=== PATIENT | male | born 1940 | race African-American/Black ===

== ENCOUNTER 2021-04-07 18:29 | Inpatient (IN) | payer MEDICARE, OTHER ==
[~2021-04-07] VITALS: Ht 180.3 cm; Wt 101.6 kg
[2021-04-07] MEDS ORDERED: ADENOSINE 3 MG/ML 2ML VIAL IV ONE ×2 (19:00→19:30)
[2021-04-07] MEDS ORDERED: PIPERACILLIN/TAZOBACTAM 3.375GM/50ML PREMIX IV ONE (19:00)
[2021-04-07] MEDS ORDERED: DILTIAZEM HCL 5MG/ML 5ML VIAL IV ONE (19:15)
[2021-04-07 19:18] LABS: BASOPHILS % 0.3 % (0.0-2.0); EOSINOPHILS % 0.2 % (0.0-5.0); HEMATOCRIT. 51.4 % (42.0-52.0); HEMOGLOBIN. 16.4 g/dL (14.0-18.0); LYMPHOCYTES % 9.3 % (20.0-50.0); MEAN CORPUSCULAR HEMOGLOBIN 29.3 pg (28.0-32.0); MEAN CORPUSCULAR VOLUME 91.9 fL (80.0-94.0); MEAN PLATELET VOLUME 11.4 fl (7.4-10.4); NEUTROPHILS % 79.2 % (40.0-76.0); PLATELET 171 x1000/uL (130-400); RED BLOOD CELL COUNT 5.59 mill/uL (4.7-6.1)
[2021-04-07 19:22] LABS: CHLORIDE 117 mEq/L (98-107)
[2021-04-07 19:25] LABS: INR 1.1
[2021-04-07] MEDS ORDERED: AMIODARONE HCL 50MG/ML 3ML VIAL IV ONE (19:30)
[2021-04-07] MEDS ORDERED: AMIODARONE HCL 150 MG in DEXT 5% WATER 97 ML IV ONE (19:30)
[2021-04-07] MEDS ORDERED: SODIUM CHLORIDE 0.9% 1,000 ML IV ONE (19:45)
[2021-04-07 19:46] LABS: CREATINE KINASE 2839 IU/L (39-308)
[2021-04-07 20:20] LABS: CLARITY URINE CLEAR (CLEAR); COLOR URINE DARK YELLOW (YELLOW); KETONES URINE NEGATIVE (NEGATIVE); LEUKOCYTE ESTERASE URINE NEGATIVE (NEGATIVE); NITRITE URINE NEGATIVE (NEGATIVE); OCCULT BLOOD URINE 2+ (NEGATIVE); PH URINE 5.5 (4.5-8.0); PROTEIN URINE 3+ (NEGATIVE); SPECIFIC GRAVITY URINE 1.027 (1.005-1.030)
[2021-04-07] MEDS ORDERED: AMIODARONE HCL 900 MG in DEXT 5% WATER 482 ML IV PRN (21:30)
[2021-04-07] MEDS: AMIODARONE HCL 900 MG in DEXT 5% WATER 482 ML IV PRN (22:44)
[2021-04-07] MEDS ORDERED: HYDRALAZINE 20MG/ML VIAL IV ONE (23:00)
[2021-04-07] MEDS ORDERED: LEVETIRACETAM 500MG PREMIX 100 ML IV ONE (23:15)
[2021-04-07] MEDS ORDERED: ENALAPRIL 2.5 MG in DEXTROSE 5% WATER 48 ML IV PRN (23:15)
[2021-04-08] VITALS (54 sets, daily range): BP systolic 113–180; BP diastolic 39–104
[2021-04-08] MEDS: AMIODARONE HCL 900 MG in DEXT 5% WATER 482 ML IV PRN ×2 (05:26→05:27)
[2021-04-08] MEDS ORDERED: NICARDIPINE 100 MG in SODIUM CHLORIDE 0.9% 60 ML IV PRN ×2 (06:30→08:45)
[2021-04-08] MEDS ORDERED: LIDOCAINE HCL 1% 20ML VIAL (Pyxis) INJ ONE (07:54)
[2021-04-08] MEDS ORDERED: HEPARIN 1,000 UNITS PREMIX 0 ML IV ONE (07:54)
[2021-04-08] MEDS ORDERED: GENTAMICIN/NS IRRIGATION 0 ML IR ONE (07:54)
[2021-04-08] MEDS ORDERED: GENTAMICIN SULF 40MG/ML 2ML VIAL ONE (07:54)
[2021-04-08] MEDS ORDERED: ONDANSETRON HCL 4MG/2ML INJ IV PRN (08:15)
[2021-04-08 08:51] LABS: HEMATOCRIT. 46.4 % (42.0-52.0); MEAN CORPUSCULAR HEMOGLOBIN 29.4 pg (28.0-32.0); MEAN CORPUSCULAR VOLUME 90.8 fL (80.0-94.0); MEAN PLATELET VOLUME 10.6 fl (7.4-10.4); PLATELET 126 x1000/uL (130-400); RED BLOOD CELL COUNT 5.11 mill/uL (4.7-6.1); RED CELL DISTRIBUTION WIDTH 14.7 % (11.6-14.6)
[2021-04-08 08:59] LABS: CHLORIDE 127 mEq/L (98-107)
[2021-04-08] MEDS ORDERED: LEVETIRACETAM 500MG PREMIX 100 ML IV SCH (09:00)
[2021-04-08] MEDS ORDERED: PIPERACILLIN/TAZ 3.375G PREMIX 50 ML IV NR (09:00)
[2021-04-08 09:12] LABS: PLATELET ESTIMATE SLIGHTLY DECREASED
[2021-04-08 09:19] LABS: *AMPHETAMINES SCREEN URINE NEGATIVE (NEGATIVE); *BARBITURATES SCREEN URINE NEGATIVE (NEGATIVE); *BENZODIAZEPINES SCREEN URINE NEGATIVE (NEGATIVE); *COCAINE SCREEN URINE NEGATIVE (NEGATIVE)
[2021-04-08 09:20] LABS: CANNABINOID URINE SCREEN NEGATIVE (NEGATIVE); METHADONE URINE SCREEN NEGATIVE (NEGATIVE); OPIATES URINE SCREEN NEGATIVE (NEGATIVE); PHENCYCLIDINE URINE SCREEN NEGATIVE (NEGATIVE)
[2021-04-08] MEDS: PIPERACILLIN/TAZOBACTAM 3.375 G in DEXTROSE 5% WATER 50 ML IV SCH ×3 (11:04→22:37)
[2021-04-08] MEDS: DEXTROSE 5% WATER 1,000 ML IV SCH (11:04)
[2021-04-08] MEDS: PANTOPRAZOLE SODIUM 40 MG/VIAL IV SCH (11:18)
[2021-04-08] MEDS: DILTIAZEM HCL 125 MG in DEXT 5% WATER 100 ML IV PRN ×2 (12:29→21:49)
[2021-04-08] MEDS: METOPROLOL TARTRATE 50MG TABLET PO SCH (20:52)
[2021-04-08] MEDS ORDERED: METOPROLOL TARTRATE 50MG TABLET PO SCH (21:00)
[2021-04-08] MEDS ORDERED: METOPROLOL TARTRATE 25MG TABLET PO SCH (21:00)
[2021-04-08] MEDS: LEVETIRACETAM 500MG PREMIX 100 ML IV SCH (21:49)
[2021-04-09] VITALS (75 sets, daily range): BP systolic 119–174; BP diastolic 44–93
[2021-04-09] MEDS ORDERED: METOPROLOL TARTRATE 5MG/5ML VIAL IV SCH (00:30)
[2021-04-09 01:07] LABS: CREATINE KINASE MB FRACTION 7.6 ng/mL (0.5-3.6)
[2021-04-09] MEDS: NICARDIPINE 100 MG in SODIUM CHLORIDE 0.9% 60 ML IV PRN ×2 (01:51→17:02)
[2021-04-09] MEDS: PIPERACILLIN/TAZOBACTAM 3.375 G in DEXTROSE 5% WATER 50 ML IV SCH ×3 (05:08→22:24)
[2021-04-09] MEDS: METOPROLOL TARTRATE 5MG/5ML VIAL IV SCH ×4 (05:11→23:57)
[2021-04-09 06:27] LABS: HEMATOCRIT. 43.9 % (42.0-52.0); MEAN CORPUSCULAR HEMOGLOBIN 29.1 pg (28.0-32.0); MEAN CORPUSCULAR VOLUME 91.6 fL (80.0-94.0); RED CELL DISTRIBUTION WIDTH 14.8 % (11.6-14.6)
[2021-04-09 07:02] LABS: CREATINE KINASE MB FRACTION 8.3 ng/mL (0.5-3.6)
[2021-04-09 08:00] LABS: PLATELET ESTIMATE DECREASED
[2021-04-09 08:01] LABS: MEAN PLATELET VOLUME 10.9 fl (7.4-10.4); PLATELET 114 x1000/uL (130-400)
[2021-04-09] MEDS: METOPROLOL TARTRATE 50MG TABLET PO SCH (08:33)
[2021-04-09] MEDS: PANTOPRAZOLE SODIUM 40 MG/VIAL IV SCH (08:38)
[2021-04-09] MEDS: LEVETIRACETAM 500MG PREMIX 100 ML IV SCH ×2 (08:39→20:20)
[2021-04-09] MEDS: DEXTROSE 5% WATER 1,000 ML IV SCH ×2 (13:08→20:21)
[2021-04-09] MEDS ORDERED: DEXTROSE 50% WATER 50ML SYRINGE IV PRN ×2 (15:00)
[2021-04-09] MEDS: BLOOD SUGAR DIAGNOSTIC STRIP TEST SCH ×2 (16:30→20:17)
[2021-04-09] MEDS: INSULIN LISPRO 100 UNITS/ML SUBCUT SCH ×2 (17:03→20:21)
[2021-04-10] VITALS (78 sets, daily range): BP systolic 118–180; BP diastolic 50–107
[2021-04-10] MEDS: BLOOD SUGAR DIAGNOSTIC STRIP TEST SCH ×4 (05:09→21:00)
[2021-04-10] MEDS: METOPROLOL TARTRATE 5MG/5ML VIAL IV SCH ×4 (05:10→23:25)
[2021-04-10] MEDS: PIPERACILLIN/TAZOBACTAM 3.375 G in DEXTROSE 5% WATER 50 ML IV SCH ×3 (05:10→23:10)
[2021-04-10] MEDS: INSULIN LISPRO 100 UNITS/ML SUBCUT SCH ×4 (05:24→21:14)
[2021-04-10 06:01] LABS: HEMATOCRIT. 40.6 % (42.0-52.0); HEMOGLOBIN. 12.9 g/dL (14.0-18.0); MEAN CORPUSCULAR HEMOGLOBIN 29.6 pg (28.0-32.0); MEAN CORPUSCULAR VOLUME 92.9 fL (80.0-94.0); MEAN PLATELET VOLUME 12.5 fl (7.4-10.4); PLATELET 100 x1000/uL (130-400); RED BLOOD CELL COUNT 4.37 mill/uL (4.7-6.1); RED CELL DISTRIBUTION WIDTH 14.6 % (11.6-14.6)
[2021-04-10 06:16] LABS: CHLORIDE 122 mEq/L (98-107)
[2021-04-10 06:22] LABS: PHOSPHORUS 3.5 mg/dL (2.5-4.9)
[2021-04-10] MEDS: DEXTROSE 5% WATER 1,000 ML IV SCH ×3 (08:00→21:36)
[2021-04-10] MEDS ORDERED: LACTULOSE 20G/30ML UDC PO PRN (09:15)
[2021-04-10] MEDS: PANTOPRAZOLE SODIUM 40 MG/VIAL IV SCH (09:20)
[2021-04-10] MEDS: LEVETIRACETAM 500MG PREMIX 100 ML IV SCH ×2 (09:20→21:14)
[2021-04-10 12:40] LABS: PLATELET ESTIMATE DECREASED
[2021-04-10] MEDS: NICARDIPINE 100 MG in SODIUM CHLORIDE 0.9% 60 ML IV PRN (12:40)
[2021-04-10 13:39] LABS: CREATINE KINASE 2080 IU/L (39-308)
[2021-04-10] MEDS: DILTIAZEM HCL 30MG TABLET PO SCH ×2 (18:00→23:25)
[2021-04-10] MEDS: INSULIN GLARGINE UD 100 UNITS/ML SYR SUBCUT SCH (21:12)
[2021-04-10] MEDS: HYDRALAZINE HCL 50MG TABLET PO SCH (21:12)
[2021-04-11 04:00] VITALS: BP 136/83
[2021-04-11] MEDS: METOPROLOL TARTRATE 5MG/5ML VIAL IV SCH ×4 (05:17→23:53)
[2021-04-11] MEDS: HYDRALAZINE HCL 50MG TABLET PO SCH ×3 (05:17→21:53)
[2021-04-11] MEDS: DILTIAZEM HCL 30MG TABLET PO SCH ×3 (05:18→19:01)
[2021-04-11] MEDS: PIPERACILLIN/TAZOBACTAM 3.375 G in DEXTROSE 5% WATER 50 ML IV SCH ×3 (05:18→21:52)
[2021-04-11] MEDS: BLOOD SUGAR DIAGNOSTIC STRIP TEST SCH ×4 (06:47→21:53)
[2021-04-11] MEDS: INSULIN LISPRO 100 UNITS/ML SUBCUT SCH ×4 (07:50→21:54)
[2021-04-11 08:00] VITALS: BP 152/73
[2021-04-11] MEDS: PANTOPRAZOLE SODIUM 40 MG/VIAL IV SCH (08:52)
[2021-04-11] MEDS: LEVETIRACETAM 500MG PREMIX 100 ML IV SCH ×2 (08:53→21:52)
[2021-04-11 09:07] LABS: IMMUNOGLOBULIN A 378 mg/dL (61-437); IMMUNOGLOBULIN G 1275 mg/dL (603-1613); IMMUNOGLOBULIN M 66 mg/dL (15-143)
[2021-04-11 10:19] LABS: HEMATOCRIT. 41.1 % (42.0-52.0); MEAN CORPUSCULAR HEMOGLOBIN 29.1 pg (28.0-32.0); MEAN CORPUSCULAR VOLUME 92.1 fL (80.0-94.0); MEAN PLATELET VOLUME 11.3 fl (7.4-10.4); PLATELET 82 x1000/uL (130-400); RED BLOOD CELL COUNT 4.46 mill/uL (4.7-6.1); RED CELL DISTRIBUTION WIDTH 14.2 % (11.6-14.6)
[2021-04-11 10:44] LABS: CREATINE KINASE MB FRACTION 6.1 ng/mL (0.5-3.6)
[2021-04-11 11:50] VITALS: BP 117/58
[2021-04-11] MEDS ORDERED: KCL 20MEQ/100ML PREMIX 100 ML IV SCH (13:00)
[2021-04-11 13:50] LABS: PLATELET ESTIMATE DECREASED
[2021-04-11 16:00] VITALS: BP 134/62
[2021-04-11] MEDS: DEXTROSE 5% WATER 1,000 ML IV SCH (19:00)
[2021-04-11 20:00] VITALS: BP 158/79
[2021-04-11] MEDS: INSULIN GLARGINE UD 100 UNITS/ML SYR SUBCUT SCH (21:55)
[2021-04-11 23:52] VITALS: BP 107/69
[2021-04-12 04:00] VITALS: BP 131/86
[2021-04-12] MEDS: DEXTROSE 5% WATER 1,000 ML IV SCH ×3 (05:00→22:33)
[2021-04-12 05:51] LABS: HEMOGLOBIN. 13.6 g/dL (14.0-18.0); MEAN CORPUSCULAR HEMOGLOBIN 29.5 pg (28.0-32.0); MEAN CORPUSCULAR VOLUME 92.7 fL (80.0-94.0); MEAN PLATELET VOLUME 11.3 fl (7.4-10.4); PLATELET 80 x1000/uL (130-400); RED BLOOD CELL COUNT 4.63 mill/uL (4.7-6.1); RED CELL DISTRIBUTION WIDTH 14.6 % (11.6-14.6)
[2021-04-12] MEDS: DILTIAZEM HCL 30MG TABLET PO SCH ×2 (06:30)
[2021-04-12] MEDS: METOPROLOL TARTRATE 5MG/5ML VIAL IV SCH (06:30)
[2021-04-12] MEDS: PIPERACILLIN/TAZOBACTAM 3.375 G in DEXTROSE 5% WATER 50 ML IV SCH ×2 (06:30→14:34)
[2021-04-12] MEDS: HYDRALAZINE HCL 50MG TABLET PO SCH ×3 (06:30→21:59)
[2021-04-12] MEDS: BLOOD SUGAR DIAGNOSTIC STRIP TEST SCH ×4 (06:31→21:56)
[2021-04-12 07:10] LABS: PHOSPHORUS 3.1 mg/dL (2.5-4.9)
[2021-04-12 07:18] LABS: CREATINE KINASE MB FRACTION 5.9 ng/mL (0.5-3.6)
[2021-04-12] MEDS: INSULIN LISPRO 100 UNITS/ML SUBCUT SCH ×4 (07:50→21:57)
[2021-04-12 08:00] VITALS: BP 138/70
[2021-04-12] MEDS: PANTOPRAZOLE SODIUM 40 MG/VIAL IV SCH (08:18)
[2021-04-12] MEDS: LEVETIRACETAM 500MG PREMIX 100 ML IV SCH ×2 (08:18→21:55)
[2021-04-12 12:00] VITALS: BP 146/74
[2021-04-12] MEDS: DILTIAZEM HCL 60MG TABLET PO SCH ×2 (13:23→18:41)
[2021-04-12 14:03] LABS: PLATELET ESTIMATE DECREASED
[2021-04-12 16:00] VITALS: BP 156/80
[2021-04-12] MEDS ORDERED: METOPROLOL TARTRATE 5MG/5ML VIAL IV NR (16:30)
[2021-04-12 20:00] VITALS: BP 162/69
[2021-04-12] MEDS: CEFAZOLIN 2000MG in DEXTROSE 5% WATER 100ML IV SCH (21:55)
[2021-04-12] MEDS: METOPROLOL TARTRATE 50MG TABLET PO SCH (21:56)
[2021-04-12] MEDS: INSULIN GLARGINE UD 100 UNITS/ML SYR SUBCUT SCH (21:57)
[2021-04-13] VITALS: BP 139/48
[2021-04-13] MEDS: DILTIAZEM HCL 60MG TABLET PO SCH ×4 (00:20→17:21)
[2021-04-13 06:10] LABS: HEMOGLOBIN. 12.1 g/dL (14.0-18.0); MEAN CORPUSCULAR HEMOGLOBIN 29.5 pg (28.0-32.0); MEAN CORPUSCULAR VOLUME 92.3 fL (80.0-94.0); PLATELET 87 x1000/uL (130-400); RED BLOOD CELL COUNT 4.11 mill/uL (4.7-6.1); RED CELL DISTRIBUTION WIDTH 14.5 % (11.6-14.6)
[2021-04-13] MEDS: HYDRALAZINE HCL 50MG TABLET PO SCH ×3 (06:21→23:19)
[2021-04-13] MEDS: BLOOD SUGAR DIAGNOSTIC STRIP TEST SCH ×4 (07:22→23:03)
[2021-04-13 08:00] VITALS: BP 133/63
[2021-04-13] MEDS: DEXTROSE 5% WATER 1,000 ML IV SCH ×2 (08:10→17:20)
[2021-04-13] MEDS: CEFAZOLIN 2000MG in DEXTROSE 5% WATER 100ML IV SCH ×2 (08:15→21:26)
[2021-04-13] MEDS: LEVETIRACETAM 500MG PREMIX 100 ML IV SCH ×2 (08:15→20:43)
[2021-04-13] MEDS: PANTOPRAZOLE SODIUM 40 MG/VIAL IV SCH (08:15)
[2021-04-13] MEDS: METOPROLOL TARTRATE 50MG TABLET PO SCH ×2 (08:16→21:26)
[2021-04-13] MEDS: INSULIN LISPRO 100 UNITS/ML SUBCUT SCH ×4 (08:17→23:21)
[2021-04-13 11:29] LABS: PLATELET ESTIMATE DECREASED
[2021-04-13 12:08] VITALS: BP 144/55
[2021-04-13 16:00] VITALS: BP 157/71
[2021-04-13] MEDS: INSULIN GLARGINE UD 100 UNITS/ML SYR SUBCUT SCH (23:20)
[2021-04-14] VITALS: BP 179/69
[2021-04-14] MEDS: DILTIAZEM HCL 60MG TABLET PO SCH ×2 (00:36→06:07)
[2021-04-14 04:00] VITALS: BP 183/73
[2021-04-14] MEDS: HYDRALAZINE HCL 50MG TABLET PO SCH ×3 (06:07→22:00)
[2021-04-14 06:08] LABS: *CREATININE RANDOM URINE 75.6 mg/dL (Not Estab.); MICROALBUMIN RANDOM URINE 117.2 ug/mL (Not Estab.)
[2021-04-14] MEDS: DEXTROSE 5% WATER 1,000 ML IV SCH ×4 (06:13→22:33)
[2021-04-14] MEDS: BLOOD SUGAR DIAGNOSTIC STRIP TEST SCH ×4 (06:32→21:00)
[2021-04-14] MEDS: INSULIN LISPRO 100 UNITS/ML SUBCUT SCH ×4 (07:45→21:00)
[2021-04-14 07:46] VITALS: BP 171/67
[2021-04-14] MEDS: CEFAZOLIN 2000MG in DEXTROSE 5% WATER 100ML IV SCH ×2 (08:08→21:59)
[2021-04-14] MEDS: METOPROLOL TARTRATE 50MG TABLET PO SCH ×2 (08:09→21:00)
[2021-04-14] MEDS: LEVETIRACETAM 500MG PREMIX 100 ML IV SCH ×2 (08:09→21:59)
[2021-04-14] MEDS: PANTOPRAZOLE SODIUM 40 MG/VIAL IV SCH (08:09)
[2021-04-14 12:00] VITALS: BP 175/73
[2021-04-14] MEDS ORDERED: CLONIDINE 0.1MG TABLET PO PRN (13:30)
[2021-04-14 13:48] VITALS: BP 142/80
[2021-04-14 16:00] VITALS: BP 157/78
[2021-04-14 16:22] LABS: BASOPHILS % 0.3 % (0.0-2.0); HEMATOCRIT. 40.9 % (42.0-52.0); HEMOGLOBIN. 12.6 g/dL (14.0-18.0); LYMPHOCYTES % 7.4 % (20.0-50.0); MEAN CORPUSCULAR HEMOGLOBIN 29.2 pg (28.0-32.0); MEAN CORPUSCULAR VOLUME 94.8 fL (80.0-94.0); MEAN PLATELET VOLUME 12.7 fl (7.4-10.4); MONOCYTES % 13.6 % (2.0-8.0); NEUTROPHILS % 76.7 % (40.0-76.0); PLATELET 108 x1000/uL (130-400); RED BLOOD CELL COUNT 4.32 mill/uL (4.7-6.1); RED CELL DISTRIBUTION WIDTH 14.4 % (11.6-14.6)
[2021-04-14 16:29] LABS: CHLORIDE 109 mEq/L (98-107)
[2021-04-14] MEDS: DILTIAZEM HCL 90MG TABLET PO SCH ×2 (16:43→17:37)
[2021-04-14] MEDS: INSULIN GLARGINE UD 100 UNITS/ML SYR SUBCUT SCH (22:00)
[2021-04-15] MEDS: HYDRALAZINE HCL 50MG TABLET PO SCH ×3 (06:00→22:00)
[2021-04-15] MEDS: DILTIAZEM HCL 90MG TABLET PO SCH ×4 (06:00→17:11)
[2021-04-15] MEDS: DEXTROSE 5% WATER 1,000 ML IV SCH ×3 (06:55→19:49)
[2021-04-15] MEDS: BLOOD SUGAR DIAGNOSTIC STRIP TEST SCH ×4 (07:20→21:00)
[2021-04-15] MEDS: INSULIN LISPRO 100 UNITS/ML SUBCUT SCH ×4 (07:35→21:00)
[2021-04-15] MEDS: CEFAZOLIN 2000MG in DEXTROSE 5% WATER 100ML IV SCH ×3 (07:40→22:52)
[2021-04-15 08:00] VITALS: BP 150/76
[2021-04-15] MEDS: METOPROLOL TARTRATE 50MG TABLET PO SCH ×2 (09:00→21:00)
[2021-04-15] MEDS: LEVETIRACETAM 500MG PREMIX 100 ML IV SCH ×2 (09:15→21:07)
[2021-04-15] MEDS: PANTOPRAZOLE SODIUM 40 MG/VIAL IV SCH (09:15)
[2021-04-15] MEDS ORDERED: CLONIDINE 0.1MG TABLET PO SCH (11:30)
[2021-04-15] MEDS: INSULIN GLARGINE UD 100 UNITS/ML SYR SUBCUT SCH (22:00)
[2021-04-16] VITALS (13 sets, daily range): BP systolic 139–186; BP diastolic 63–102
[2021-04-16] MEDS ORDERED: HYDRALAZINE 20MG/ML VIAL IV PRN (04:30)
[2021-04-16] MEDS: HYDRALAZINE HCL 50MG TABLET PO SCH (05:28)
[2021-04-16] MEDS: DILTIAZEM HCL 90MG TABLET PO SCH ×5 (05:29→23:42)
[2021-04-16] MEDS: BLOOD SUGAR DIAGNOSTIC STRIP TEST SCH ×4 (06:21→21:42)
[2021-04-16] MEDS: CEFAZOLIN 2000MG in DEXTROSE 5% WATER 100ML IV SCH ×3 (06:31→22:25)
[2021-04-16] MEDS: INSULIN LISPRO 100 UNITS/ML SUBCUT SCH ×4 (06:54→21:00)
[2021-04-16 06:55] LABS: CHLORIDE 108 mEq/L (98-107); HEMATOCRIT. 37.4 % (42.0-52.0); HEMOGLOBIN. 12.2 g/dL (14.0-18.0); MEAN CORPUSCULAR HEMOGLOBIN 29.6 pg (28.0-32.0); MEAN CORPUSCULAR VOLUME 90.8 fL (80.0-94.0); PLATELET 152 x1000/uL (130-400); RED BLOOD CELL COUNT 4.12 mill/uL (4.7-6.1); RED CELL DISTRIBUTION WIDTH 13.8 % (11.6-14.6)
[2021-04-16 07:10] LABS: PHOSPHORUS 3.3 mg/dL (2.5-4.9)
[2021-04-16] MEDS ORDERED: LORAZEPAM 2MG/ML CPJ IV SCH (08:30)
[2021-04-16] MEDS: METOPROLOL TARTRATE 50MG TABLET PO SCH ×2 (09:10→21:42)
[2021-04-16] MEDS: PANTOPRAZOLE SODIUM 40 MG/VIAL IV SCH (09:10)
[2021-04-16] MEDS: LEVETIRACETAM 500MG PREMIX 100 ML IV SCH ×2 (09:10→21:41)
[2021-04-16] MEDS ORDERED: LIDOCAINE HCL 1% 20ML VIAL (Pyxis) INJ ONE (10:13)
[2021-04-16] MEDS ORDERED: IOHEXOL-300 100 ML BOTTLE ONE (10:13)
[2021-04-16] MEDS: HYDRALAZINE 20MG/ML VIAL IV SCH ×4 (12:52→23:42)
[2021-04-16 12:59] LABS: PLATELET ESTIMATE NORMAL
[2021-04-16] MEDS: HYDRALAZINE HCL 100MG TABLET PO SCH ×2 (14:00→22:00)
[2021-04-16] MEDS: DEXTROSE 5% WATER 1,000 ML IV SCH (21:49)
[2021-04-16] MEDS: INSULIN GLARGINE UD 100 UNITS/ML SYR SUBCUT SCH (22:26)
[2021-04-17] VITALS: BP 162/69
[2021-04-17 04:00] VITALS: BP 148/88
[2021-04-17] MEDS: HYDRALAZINE HCL 100MG TABLET PO SCH ×3 (06:00→22:00)
[2021-04-17] MEDS: DILTIAZEM HCL 90MG TABLET PO SCH ×4 (06:10→23:40)
[2021-04-17] MEDS: HYDRALAZINE 20MG/ML VIAL IV SCH ×4 (06:11→23:39)
[2021-04-17] MEDS: CEFAZOLIN 2000MG in DEXTROSE 5% WATER 100ML IV SCH ×3 (06:11→22:16)
[2021-04-17] MEDS: BLOOD SUGAR DIAGNOSTIC STRIP TEST SCH ×4 (06:32→20:35)
[2021-04-17] MEDS: INSULIN LISPRO 100 UNITS/ML SUBCUT SCH ×4 (07:08→20:34)
[2021-04-17 07:57] VITALS: BP 151/60
[2021-04-17] MEDS: LEVETIRACETAM 500MG PREMIX 100 ML IV SCH ×2 (07:59→20:35)
[2021-04-17] MEDS: METOPROLOL TARTRATE 50MG TABLET PO SCH ×2 (07:59→20:31)
[2021-04-17] MEDS: PANTOPRAZOLE SODIUM 40 MG/VIAL IV SCH (07:59)
[2021-04-17 08:20] LABS: CHLORIDE 109 mEq/L (98-107)
[2021-04-17 08:22] LABS: BASOPHILS % 0.3 % (0.0-2.0); EOSINOPHILS % 1.3 % (0.0-5.0); HEMATOCRIT. 35.7 % (42.0-52.0); HEMOGLOBIN. 11.6 g/dL (14.0-18.0); LYMPHOCYTES % 7.7 % (20.0-50.0); MEAN CORPUSCULAR HEMOGLOBIN 29.7 pg (28.0-32.0); MEAN CORPUSCULAR VOLUME 91.1 fL (80.0-94.0); MEAN PLATELET VOLUME 11.8 fl (7.4-10.4); MONOCYTES % 12.2 % (2.0-8.0); NEUTROPHILS % 78.5 % (40.0-76.0); PLATELET 177 x1000/uL (130-400); RED BLOOD CELL COUNT 3.92 mill/uL (4.7-6.1); RED CELL DISTRIBUTION WIDTH 13.8 % (11.6-14.6)
[2021-04-17 08:27] LABS: PHOSPHORUS 2.9 mg/dL (2.5-4.9)
[2021-04-17 12:00] VITALS: BP 164/67
[2021-04-17] MEDS: RISPERIDONE 0.5MG TABLET PO SCH (14:28)
[2021-04-17] MEDS: LOSARTAN POTASSIUM 50 MG TABLET PO SCH (14:29)
[2021-04-17 16:00] VITALS: BP 157/66
[2021-04-17 20:00] VITALS: BP 155/60
[2021-04-17] MEDS: DEXTROSE 5% WATER 1,000 ML IV SCH (20:31)
[2021-04-17] MEDS: INSULIN GLARGINE UD 100 UNITS/ML SYR SUBCUT SCH (22:17)
[2021-04-18] VITALS: BP 123/68
[2021-04-18 04:00] VITALS: BP 137/53
[2021-04-18] MEDS: HYDRALAZINE HCL 100MG TABLET PO SCH ×3 (06:00→22:42)
[2021-04-18] MEDS: HYDRALAZINE 20MG/ML VIAL IV SCH ×5 (06:23→20:29)
[2021-04-18] MEDS: BLOOD SUGAR DIAGNOSTIC STRIP TEST SCH ×4 (06:23→21:00)
[2021-04-18] MEDS: DILTIAZEM HCL 90MG TABLET PO SCH ×4 (06:23→23:09)
[2021-04-18] MEDS: INSULIN LISPRO 100 UNITS/ML SUBCUT SCH ×4 (07:40→23:10)
[2021-04-18 08:00] VITALS: BP 141/56
[2021-04-18 08:01] LABS: CHLORIDE 107 mEq/L (98-107)
[2021-04-18 08:11] LABS: PHOSPHORUS 3.3 mg/dL (2.5-4.9)
[2021-04-18] MEDS: METOPROLOL TARTRATE 50MG TABLET PO SCH ×2 (09:06→22:42)
[2021-04-18] MEDS: LEVETIRACETAM 500MG PREMIX 100 ML IV SCH ×2 (09:06→22:43)
[2021-04-18] MEDS: PANTOPRAZOLE SODIUM 40 MG/VIAL IV SCH (09:06)
[2021-04-18] MEDS: LOSARTAN POTASSIUM 50 MG TABLET PO SCH (09:06)
[2021-04-18] MEDS: RISPERIDONE 0.5MG TABLET PO SCH (09:06)
[2021-04-18 12:00] VITALS: BP 140/68
[2021-04-18 12:21] LABS: BASOPHILS % 0.3 % (0.0-2.0); EOSINOPHILS % 0.9 % (0.0-5.0); HEMATOCRIT. 34.1 % (42.0-52.0); MEAN CORPUSCULAR VOLUME 90.5 fL (80.0-94.0); MEAN PLATELET VOLUME 11.3 fl (7.4-10.4); MONOCYTES % 12.3 % (2.0-8.0); NEUTROPHILS % 75.5 % (40.0-76.0); PLATELET 223 x1000/uL (130-400); RED BLOOD CELL COUNT 3.77 mill/uL (4.7-6.1); RED CELL DISTRIBUTION WIDTH 14.1 % (11.6-14.6)
[2021-04-18 16:00] VITALS: BP 138/55
[2021-04-18 20:00] VITALS: BP 132/54
[2021-04-18] MEDS: DEXTROSE 5% WATER 1,000 ML IV SCH (22:43)
[2021-04-18] MEDS: INSULIN GLARGINE UD 100 UNITS/ML SYR SUBCUT SCH (23:10)
[2021-04-19] VITALS: BP 147/55
[2021-04-19 04:00] VITALS: BP 153/60
[2021-04-19] MEDS: HYDRALAZINE HCL 100MG TABLET PO SCH (06:28)
[2021-04-19] MEDS: BLOOD SUGAR DIAGNOSTIC STRIP TEST SCH (06:29)
[2021-04-19] MEDS: INSULIN LISPRO 100 UNITS/ML SUBCUT SCH (06:29)
[2021-04-19] MEDS: DILTIAZEM HCL 90MG TABLET PO SCH (06:29)
[2021-04-19 08:00] VITALS: BP 142/57
[2021-04-19] MEDS: LEVETIRACETAM 500MG PREMIX 100 ML IV SCH (08:00)
[2021-04-19] MEDS: PANTOPRAZOLE SODIUM 40 MG/VIAL IV SCH (08:01)
[2021-04-19] MEDS: METOPROLOL TARTRATE 50MG TABLET PO SCH (08:40)
[2021-04-19] MEDS: LOSARTAN POTASSIUM 50 MG TABLET PO SCH (08:40)
[2021-04-19] MEDS ORDERED: RISPERIDONE 1MG TABLET PO SCH (09:00)
[2021-04-19 09:42] VITALS: BP 142/57
== END 2021-04-19 11:12 | DRG 871 ==
LOC: ER 18:29 → EDBEDREQSVC 21:44 → EDBEDREQTM 21:44 → EDBEDREQ 21:44 → EDBEDREQSVC 22:46 → EDBEDREQ 22:46 → EDBEDREQTM 22:46 → MICUNO 23:17 → EDBEDREQ 23:18 → EDBEDREQTM 23:18 → ENRESERV 04-08 07:57 → 6WST 04-10 23:08
PROVIDERS: ADMIT Internal Medicine; ATTEND Internal Medicine
PROC: 06H03DZ Insertion of Intraluminal Device into Inferior Vena Cava, Percutaneous Approach (ICD-10-PCS; principal; 2021-04-16)
DX: A41.59 Other Gram-negative sepsis (principal); I61.9 Nontraumatic intracerebral hemorrhage, unspecified; E43 Unspecified severe protein-calorie malnutrition; G93.6 Cerebral edema; G93.40 Encephalopathy, unspecified; E87.0 Hyperosmolality and hypernatremia; G81.91 Hemiplegia, unspecified affecting right dominant side; I48.92 Unspecified atrial flutter; E87.2 Acidosis; M62.82 Rhabdomyolysis; I48.20 Chronic atrial fibrillation, unspecified; I82.412 Acute embolism and thrombosis of left femoral vein; I82.431 Acute embolism and thrombosis of right popliteal vein; N17.9 Acute kidney failure, unspecified; E87.8 Other disorders of electrolyte and fluid balance, not elsewhere classified; E86.1 Hypovolemia; D69.6 Thrombocytopenia, unspecified; R74.01 Elevation of levels of liver transaminase levels; R79.89 Other specified abnormal findings of blood chemistry; L89.150 Pressure ulcer of sacral region, unstageable; I73.9 Peripheral vascular disease, unspecified; Z20.822 Contact with and (suspected) exposure to COVID-19; E80.6 Other disorders of bilirubin metabolism; D64.9 Anemia, unspecified; I49.3 Ventricular premature depolarization; I11.0 Hypertensive heart disease with heart failure; I50.9 Heart failure, unspecified; Z79.01 Long term (current) use of anticoagulants; Z68.31 Body mass index [BMI] 31.0-31.9, adult; Z78.1 Physical restraint status; Z59.00 Homelessness unspecified; Z86.718 Personal history of other venous thrombosis and embolism; Z95.828 Presence of other vascular implants and grafts; Z82.49 Family history of ischemic heart disease and other diseases of the circulatory system; Z91.19 Patient's noncompliance with other medical treatment and regimen
CPT/HCPCS: 36415; 37191; 71045; 76770; 80048; 80053; 80061; 80305; 81003; 82043; 82550; 82553; 82570; 82784; 82962; 83036; 83605; 83735; 83880; 83935; 84100; 84134; 84145; 84300; 84484; 85025; 86334; 87077; 87186; 87426; 93005; 93306; 93923; 93970; 99291; C1769; C1880; C1887; C1893; C9113; J0153; J0282; J0360; J0690; J1580; J1644; J1815; J1953; J2060; J2543; J3480; J3490; J7030; J7042; J7050; J7060; J7070; Q9967; A4315

== ENCOUNTER 2021-05-22 14:08 | Emergency (ER) | payer OTHER, MEDICARE ==
[~2021-05-22] VITALS: Ht 162.6 cm; Wt 70.0 kg
[2021-05-22] MEDS ORDERED: SODIUM CHLORIDE 0.9% 1,000 ML IV ONE (14:30)
[2021-05-22 15:01] VITALS: BP 56/24
[2021-05-22] MEDS ORDERED: NOREPINEPHRINE 8MG/250ML PMX 250 ML IV PRN (15:15)
== END 2021-05-22 16:50 ==
LOC: ER 14:08
DX: I46.9 Cardiac arrest, cause unspecified (principal); E11.9 Type 2 diabetes mellitus without complications; Z86.73 Personal history of transient ischemic attack (TIA), and cerebral infarction without residual deficits
CPT/HCPCS: 92950; 93005; 96360; 99285; J3490; J7030